=== PATIENT | male | born 1975 | race Caucasian/White ===

== ENCOUNTER 2019-08-12 01:06 | Observation (INO) | payer OTHER, SELFPAY ==
[2019-08-12] VITALS (11 sets, daily range): BP systolic 115–143; BP diastolic 75–98; PULSE 82–95; RESP 12–24; TEMP 36.2–37.6; O2SAT 93–100; BMI 24.9
--- NOTE | ~2019-08-12 | XR_ITS ---
EXAMINATION: XR abdomen/kub 1V EXAM DATE: 08/12/2019 02:04 INDICATION: Right UPJ stone. TECHNIQUE: Frontal projection(s) of the abdomen for interpretation. There is no prior study for liz chung. FINDINGS: Right UPJ 6 mm stone is identified, indicated projecting between the right L2 and L3 trans verse processes. Nonobstructive bowel gas pattern. Mild bony degenerative changes. IMPRESSION: Right UPJ stone identified. Reviewed, dictated and finalized at location A. HERMAL PRODUCTION MANAGER IMPRESSION: Right UPJ stone identified.
--- NOTE | ~2019-08-12 | CT_ITS ---
EXAMINATION: CT abdomen pelvis wo con EXAM DATE: 08/12/2019 01:56 INDICATION: Right flank pain, low back pain. TECHNIQUE: Spiral CT of the abdomen and pelvis was performed without contrast. Axial, coronal and s agittal images were reviewed. The dose-length product (DLP) for this examination was 217.37 mGy-cm. The exposure was tailored according to patient size (auto mA exposure control), and iterative recons truction (ASIR) was used as additional dose reduction technique. There is no prior study for compari son. FINDINGS: The liver, spleen, adrenal glands and pancreas are unremarkable. Gallbladder is unremarkab le. No biliary obstruction. Right kidney is enlarged, mild obstructive nephropathy from a 6 x 4 mm stone in the ureteropelvic junction. There is punctate left nephrolithiasis. The prostate is unremar kable. The bladder is unremarkable. There is no retroperitoneal or pelvic lymphadenopathy. Small umbilical fat-containing hernia. The appendix is normal. The stomach and small bowel are unremarkable. There is expected amount of c olonic stool. No free intraperitoneal gas. The heart is normal in size. There are no pericardial or pleural effusions. There is mild to moderate basilar emphysema, basilar subsegmental atelectasis . There are no osteoblastic or osteolytic lesions identified. IMPRESSION: 1. Right UPJ 6 mm stone, mild obstructive nephropathy. 2. Punctate left nephrolithiasis. Reviewed, dictated and finalized at location A. EDUCATOR
--- NOTE | 2019-08-12 01:24 | ED_ITS ---
I attest that this documentation has been prepared under the direction and in the presence of Jessica Sheffield MD. Amara Isaac Scribe 08/12/19;01:25 HPI - Male Genitourinary General Chief complaint: Urogenital-Male Stated complaint: kidney stones Time Seen by Provider: 08/12/19 01:19 Source: patient and RN notes reviewed Mode of arrival: other Limitations: no limitations [facility] Surgical History Surgical History (Updated 08/12/19 @ 01:26 by Amara Isaac) H/O lithotripsy Course Vital Signs Vital signs: Vital Signs Temperature 36.9 C 08/12/19 01:11 Pulse Rate 82 08/12/19 01:11 Respiratory Rate 24 H 08/12/19 01:11 Blood Pressure 143/97 H 08/12/19 01:11 Pulse Oximetry 100 08/12/19 01:11 Temperature 36.9 C 08/12/19 01:11 Pulse Rate 82 08/12/19 01:11 Respiratory Rate 24 H 08/12/19 01:11 Blood Pressure 143/97 H 08/12/19 01:11 Pulse Oximetry 100 08/12/19 01:11
--- NOTE | 2019-08-12 01:27 | ED.BACK ---
HPI - Back Pain/Injury General Chief Complaint: Back Pain/Injury Stated Complaint: kidney stones Time Seen by Provider: 08/12/19 01:19 Source: patient and RN notes reviewed Mode of arrival: other Limitations: no limitations History of Present Illness HPI Narrative: Pt is a 43 y/o male who presents to the ED with c/o 10/10 right flank pain that radiates to his testicles that began 2 hours ago. Pt has a hx of kidney stones and a lithotripsy removing a 7 mm stone at [facility] ED 6 months ago. Pt states that he went back to [facility] after his surgery and he was cleared to go back to work. Pt states that he was told that he did not have any other stones in his kidney after his surgery. He notes that this episode is worse than his previous episodes of kidney stones. Pt reports dark colored urine, but denies nausea and vomiting. MD elicited complaint: other (flank pain) Pertinent past history: kidney stones Onset (ago): hour(s) (2) Timing: other (still present) Severity: severe Pain scale (0-10): 10 Location: right flank Radiation: other (testicles) Associated symptoms: other (dark colored urine) Related Data Home Medications Medication Instructions Recorded Confirmed bupropion HCl 75 mg PO BID 08/12/19 08/12/19 Allergies Allergy/AdvReac Type Severity Reaction Status Date / Time No Known Allergies Allergy Verified 08/12/19 03:21 Review of Systems Review of Systems: All systems reviewed & are unremarkable except as noted in HPI and below Gastrointestinal: Gastrointestinal: Denies nausea and Denies vomiting Genitourinary: Genitourinary: Reports flank pain (that radiates to his testicles) and Reports other (dark colored urine) [facility] Past Medical History Medical History (Updated 08/12/19 @ 04:09 by Jessica Sheffield MD) ADHD Anxiety Kidney stone Surgical History Surgical History (Updated 08/12/19 @ 01:26 by Amara Isaac) H/O lithotripsy Family History Family History (Updated 08/12/19 @ 04:59 by Karma Frances, RIYA) Father Stomach cancer Social History Social History Smoking status: Current every day smoker Tobacco type: cigarettes Alcohol intake: former Substance use: never Substance use type: does not use Gender identity (if verbalized by the patient): Male Spiritual care concerns: No Agree to blood products: Yes Exam Const: General: alert and acute distress moderate Nutritional Appearance: thin Orientation/consciousness: patient oriented x3 Eyes: Conjunctivae: conjunctivae normal Pupils: Equal, round and reactive pupils present EOM: EOMs intact bilaterally Chest: Chest palpation & inspection: normal inspection of the chest Resp: Effort & Inspection: normal respiratory effort and no retractions Auscultation: clear to auscultation bilaterally and no wheezes Cardio: Rate: regular rate Rhythm: regular rhythm Heart sounds: no murmurs GI: GI Palp: Yes abdominal tenderness (RUQ, RLQ), Yes Soft to palpation, No Guarding due to palpation present (GI) and No Rigid due to palpation Auscultation: normal bowel sounds Back/Spine/Pelvis: Back: CVA tenderness (right) Skin: General skin exam: normal color Rashes: no rashes Neuro: General: patient oriented x3, moves all extremities and CN's II-XI intact bilaterally Psych: Mental Status: mental status grossly normal Affect: normal affect Course Reevaluation(s) Reevaluation #1: PAtient is laying in bed comfortably but patient states his pain is still severe Date: 08/12/19 Time: 03:15 Consultations Consultation #1: I spoke with Dr. Sanchez about case and he agrees to admit. Make patient NPO Date: 08/12/19 Time: 03:39 Vital Signs Vital signs: Vital Signs Temperature 98.4 F 08/12/19 01:11 Pulse Rate 82 08/12/19 01:11 Respiratory Rate 24 H 08/12/19 01:11 Blood Pressure 143/97 H 08/12/19 01:11 Pulse Oximetry 100 08/12/19 01:11 Temperature 98.1 F 08/12/19 04:54 Pulse Rate 83 08/12/19 04:54 Respira
[2019-08-12] MEDS: ONDANSETRON INJ 4 MG/2 ML VIAL IV PUSH (01:44)
[2019-08-12] MEDS: HYDROMORPHONE HCL 1 MG/ML INJ IV PUSH (01:45)
[2019-08-12] MEDS: LACTATED RINGERS 1,000 ML 999 ML IV CONT (01:46)
--- NOTE | 2019-08-12 01:52 | PC.NURSE ---
Pt down to ct. asked pt to void. urinal provided
[2019-08-12 01:53] LABS: Basophils Absolute Auto 0.1 K/mm3 (0.0-0.1); Basophils Percent Auto 0.9 % (0.2-1.2); Eosinophils Absolute Auto 0.3 K/mm3 (0-0.3); Eosinophils Percent Auto 2.1 % (0-4.4); Hematocrit 46.2 % (42.0-52.0); Hemoglobin 15.3 g/dL (14.0-18.0); Immature Granulocyte Absolute 0.04 K/mm3 (0.00-0.031); Immature Granulocyte Percent A 0.3 % (0-0.5); Lymphocytes Absolute Auto 0.77 K/mm3 (0.9-3.2); Lymphocytes Percent Auto 6.6 % (18.3-44.2); Mean Corpuscular HGB Conc 33.1 g/dl (32-36); Mean Corpuscular Hemoglobin 31.1 pg (26-34); Mean Corpuscular Volume 93.9 fl (80-100); Mean Platelet Volume 10.5 fl (7.4-10.4); Monocytes Absolute Auto 1.1 K/mm3 (0.1-0.6); Neutrophils Absolute Auto 9.5 K/mm3 (1.3-6.7); Neutrophils Percent Auto 81.1 % (45.5-73.1); Platelet Count Result 231 k/mm3 (150-375); Red Blood Count 4.92 M/mm3 (4.6-6.20); Red Cell Distribution Width 12.6 % (11.5-14.5); White Blood Count 11.7 K/mm3 (4.5-10.0)
[2019-08-12 02:03] LABS: Alanine Aminotransferase 14 U/L (4-50); Albumin Level 4.2 g/dL (3.5-5.1); Alkaline Phosphatase 92 U/L (38-126); Aspartate Amino Transferase 20 U/L (17-59); Bilirubin,Total 0.4 mg/dL (0.2-1.3); Blood Urea Nitrogen 20 mg/dL (9-20); Calcium 8.8 mg/dL (8.4-10.2); Carbon Dioxide 29 mmol/L (22-30); Chloride 99 mmol/L (98-107); Estimated CRCL calculation 75 ml/min; Estimated Glomerular Filt Rate > 60; Glucose 108 mg/dL (75-110); Lipase 97 U/L (23-300); Potassium 4.3 mmol/L (3.4-5.0); Sodium 136 mmol/L (137-145)
[2019-08-12 02:56] LABS: Add Urine Microscopic? YES; Appearance Urine Cloudy (Clear); Bilirubin Urine Negative (Negative); Blood Urine 3+ (Negative); Color Urine Yellow (Yellow); Glucose Urine UA Negative (Negative); Ketones Urine Negative (Negative); Leukocyte Esterase Ur Negative LEU/UL (Negative); Mucus Urine Rare /lpf; Nitrate Urine Negative (Negative); Protein Urine 2+ mg/dL (Negative); RBC Urine >75 /hpf (0-2); Specific Grav Ur 1.018 (1.001-1.035); Urobilinogen Urine Negative mg/dL (<2.0)
--- NOTE | 2019-08-12 04:47 | ADMGEN ---
This patient, Jt Duarte, was admitted to Medical Room 246-01. Patient/family oriented to hospital policies and general routines including ID bracelet, bed and alarms, visiting hours, pain management, procedures, bathroom and other care routines, personal items, smoking policy, room service/diet, and visiting hours. Valuables list has been completed. Information on how to activate the Rapid Response Team has been discussed. Patient/Family are encouraged to report perceived risks to care and to ask questions if they do not understand what they are told or what they should do.
[2019-08-12] MEDS: LACTATED RINGERS 1,000 ML 125 ML IV CONT ×2 (05:10→12:46)
--- NOTE | 2019-08-12 08:19 | WPDURCON ---
Assessment and Plan Assessment and plan (1) Calculus of proximal right ureter: Code(s): N20.1 - Calculus of ureter Status: Acute Assessment and Plan: Obtain consent: Right Lithotripsy, possible cystoscopy with right stent placement. Keep NPO. Plan to go to OR today. Urology Consult Note HPI Date Seen: 08/12/19 Requesting Physician: Donnie Sanchez MD Primary Care Provider: ART PSYCHOTHERAPIST OR THERAPIST PHYSICIAN Consult Narrative Reason for consult: 6mm Right UPJ Stone Narrative: Jt Duarte is a 43 year old male who presented to the ER with severe right flank pain that radiates to his testicles that began early this morning. Pt has a hx of kidney stones and has had a recent lithotripsy to remove a 7 mm stone at [facility] in January 2019. Patient states that he was told by the Urologist at [facility] that he did not have any other stones in his kidney after his surgery. Pt reports dark colored urine, but denies nausea, dysuria, fever or vomiting. He has had some minor gross hematuria preesent. He denies any blood thinners or NSAIDS for the past 7 days. Review of Systems Cardiovascular: Cardiovascular: Denies chest pain Respiratory: Respiratory: Reports no additional respiratory complaints Gastrointestinal: Gastrointestinal: Denies abdominal pain Genitourinary: Genitourinary: Reports hematuria, Denies dysuria, Reports flank pain, Reports testicular pain and Denies urinary urgency PMFSH Past Medical History Medical History ADHD Anxiety Kidney stone Surgical History Surgical History H/O lithotripsy Family History Family History Father Stomach cancer Social History Social History Smoking status: Current every day smoker Tobacco type: cigarettes Alcohol intake: former Substance use: never Substance use type: does not use Gender identity (if verbalized by the patient): Male Spiritual care concerns: No Agree to blood products: Yes Meds Home Medications and Allergies Home Medications Medication Instructions Recorded Confirmed Type bupropion HCl 75 mg PO BID 08/12/19 08/12/19 History Allergies Allergy/AdvReac Type Severity Reaction Status Date / Time No Known Allergies Allergy Verified 08/12/19 03:21 Vital Signs Vital Signs - 24 hr 08/12/19 01:11 08/12/19 03:26 08/12/19 04:25 Temperature 98.4 F 98.9 F Pulse Rate 82 95 91 Respiratory Rate 24 H 12 13 Blood Pressure 143/97 H 140/94 H 137/88 Pulse Oximetry 100 93 100 08/12/19 04:40 08/12/19 04:54 Temperature 99.0 F 98.1 F Pulse Rate 91 83 Respiratory Rate 15 20 Blood Pressure 133/90 138/98 H Pulse Oximetry 100 97 Exam Resp: Effort & Inspection: normal respiratory effort Cardio: Rate: regular rate GI: GI Palp: No Tenderness to palpation present (GI) : General: No CVA tenderness Results Labs CBC & Chem 7: 08/12/19 01:45 08/12/19 01:45 Labs: Short CBC 08/12/19 Range/Units 01:45 WBC 11.7 H (4.5-10.0) K/mm3 Hgb 15.3 (14.0-18.0) g/dL Hct 46.2 (42.0-52.0) % Plt Count 231 (150-375) k/mm3 BMP 08/12/19 01:45 Sodium 136 L Potassium 4.3 Chloride 99 Carbon Dioxide 29 BUN 20 Creatinine 1.10 Glucose 108 Calcium 8.8 Liver Function 08/12/19 Range/Units 01:45 Total Bilirubin 0.4 (0.2-1.3) mg/dL AST 20 (17-59) U/L ALT 14 (4-50) U/L Alkaline Phosphatase 92 (38-126) U/L Albumin 4.2 (3.5-5.1) g/dL Urine 08/12/19 Range/Units 02:32 Urine Color Yellow (Yellow) Urine Appearance Cloudy H (Clear) Urine pH 7.0 (5.0-9.0) Ur Specific [place] 1.018 (1.001-1.035) Urine Protein 2+ H (Negative) mg/dL Urine Glucose (UA) Negative (Negative) mg/dL
--- NOTE | 2019-08-12 12:03 | WPDANESEPPF ---
Anes - Initial Pre Proc Eval Procedure: Operation Date: 08/12/19 12:30 Proposed Procedures p Right Extracorporeal Shock Wave Lithotripsy, Possible Cystoscopy, Right Ureteroscopy, Right Retrograde Pyelogram, Right Stent Placement - Joe Sorensen MD Date/Time: 08/12/19 12:03 Surgeon: Donnie Sanchez MD Pre Op Diagnosis: right proximal obstructive ureteral stone Patient Data Age: 43 Gender: M Height: 1.75 m Weight: 76.6 kg Last Vital Signs Temp 36.7 C 08/12/19 04:54 Pulse 83 08/12/19 04:54 Resp 20 08/12/19 04:54 BP 138/98 H 08/12/19 04:54 Pulse Ox 97 08/12/19 04:54 Allergies Allergy/AdvReac Type Severity Reaction Status Date / Time No Known Allergies Allergy Verified 08/12/19 13:22 Home Medications Medication Instructions Recorded Confirmed Type bupropion HCl 75 mg PO BID 08/12/19 08/12/19 History Laboratory Tests 08/12/19 08/12/19 08/12/19 01:45 01:45 02:32 WBC 11.7 K/mm3 H K/mm3 (4.5-10.0) RBC 4.92 M/mm3 M/mm3 (4.6-6.20) Hgb 15.3 g/dL g/dL (14.0-18.0) Hct 46.2 % % (42.0-52.0) MCV 93.9 fl fl (80-100) MCH 31.1 pg pg (26-34) MCHC 33.1 g/dl g/dl (32-36) RDW 12.6 % % (11.5-14.5) Plt Count 231 k/mm3 k/mm3 (150-375) MPV 10.5 fl H fl (7.4-10.4) Immature Gran % (Auto) 0.3 % % (0-0.5) Neut % (Auto) 81.1 % H % (45.5-73.1) Lymph % (Auto) 6.6 % L % (18.3-44.2) [place] % (Auto) 9.0 % H % (2.6-8.5) Eos % (Auto) 2.1 % % (0-4.4) Baso % (Auto) 0.9 % % (0.2-1.2) Lymph # (Auto) 0.77 K/mm3 L K/mm3 (0.9-3.2) [place] # (Auto) 1.1 K/mm3 H K/mm3 (0.1-0.6) Eos # (Auto) 0.3 K/mm3 K/mm3 (0-0.3) Baso # (Auto) 0.1 K/mm3 K/mm3 (0.0-0.1) Abs Immat Gran (auto) 0.04 K/mm3 H K/mm3 (0.00-0.031) Absolute Neuts (auto) 9.5 K/mm3 H K/mm3 (1.3-6.7) Absolute Nucleated RBC 0.0 K/mm3 K/mm3 (0.0-0.012) Nucleated RBC % 0.0 % % (0.0-0.2) Sodium 136 mmol/L L mmol/L (137-145) Potassium 4.3 mmol/L mmol/L (3.4-5.0) Chloride 99 mmol/L mmol/L (98-107) Carbon Dioxide 29 mmol/L mmol/L (22-30) BUN 20 mg/dL mg/dL (9-20) Creatinine 1.10 mg/dL mg/dL (0.7-1.3) Estim Creat Clear Calc 75 ml/min ml/min Estimated GFR > 60 (59 - ) Glucose 108 mg/dL mg/dL (75-110) Calcium 8.8 mg/dL mg/dL (8.4-10.2) Total Bilirubin 0.4 mg/dL mg/dL (0.2-1.3) AST 20 U/L U/L (17-59) ALT 14 U/L U/L (4-50) Alkaline Phosphatase 92 U/L U/L (38-126) Total Protein 8.0 g/dL g/dL (6.3-8.2) Albumin 4.2 g/dL g/dL (3.5-5.1) Lipase 97 U/L U/L (23-300) Urine Color Yellow (Yellow) Urine Appearance Cloudy H (Clear) Urine pH 7.0 (5.0-9.0) Ur Specific [place] 1.018 (1.001-1.035) Urine Protein 2+ mg/dL H mg/dL (Negative) Urine Glucose (UA) Negative mg/dL mg/dL (Negative) Urine Ketones Negative mg/dL mg/dL (Negative) Ur Blood (Man) 3+ H (Negative) Urine Nitrate Negative (Negative) Urine Bilirubin Negative (Negative) Urine Urobilinogen Negative mg/dL mg/dL (<2.0) Leukocyte Esterase Rfl Negative ARIANNA/UL ARIANNA/UL (Negative) Urine RBC >75 /hpf H /hpf (0-2) Urine WBC 4-6 /hpf H /hpf Urine Mucus Rare /lpf /lpf Patient hx anesthesia problems: none Family hx anesthesia problems: none PMFSH Past Medical History Medical History (Updated 08/12/19 @ 12:04 by Ezio Mcknight MD) ADHD Anxiety Depression Kidney stone Surgical History Surgical History H/O lith
[2019-08-12] MEDS: LACTATED RINGERS 1,000 ML 30 ML IV CONT ×2 (13:20→14:53)
[2019-08-12] MEDS: ceFAZolin 2 GM/D5W 50 ML 2 GM/50 ML BAG IVPB (14:00)
--- NOTE | 2019-08-12 14:42 | PM.PROC ---
Procedure Note - Detailed Date of procedure: 08/12/19 Pre-op diagnosis: right proximal obstructive ureteral stone Post-op diagnosis: same Procedure performed: Lithotripsy of right proximal ureteral calculus 6 mm Description of procedure: Patient was taken to the operative suite and correctly identified. Once general anesthesia was obtained the stone was localized in both planes. Three thousand shocks were given to the stone. There appeared to be good fragmentation. Patient tolerated procedure well without any complications was taken recovery room in stable condition. We discharged home later today if he tolerates a diet. Anesthesia: GLMA Surgeon: Joe Sorensen MD Drains: No Packing: No Pathology: none sent Complications: No immediate complications Condition: stable Disposition: PACU
--- NOTE | 2019-10-04 13:49 | PM.DS ---
DS: Diagnosis Admitting Diagnosis Admitting Diagnosis: Unspecified abdominal pain DS: Summary Time Spent with Patient Time attestation: Total time spent providing and/or coordinating discharge services: Discharge Plan Discharge Attending physician on discharge: Joe Sorensen Consulting providers: Joe Sorensen ; Dany Jordan ; Yamilet Cervantes Discharging Clinician: Yamilet Cervantes Anticipated Discharge Date/Time: 08/12/19 14:22 Patient Disposition: Home, Self-Care Activity: november shower Diet: as tolerated Discharge Instructions: Call office to schedule follow up with Dr. Sorensen. Patient Instructions: Antibiotic Form, How to Stop Smoking (DC) Stand Alone Forms: General Discharge Information Follow-up/Referrals: Joe Sorensen MD [Physician] - Discharge Medications: New sulfamethoxazole-trimethoprim 800-160 mg tablet 1 tablet PO BID 3 Days Qty: 6 RF: 0 tramadol 50 mg tablet 50 mg PO Q6H PRN (Reason: pain) Qty: 20 RF: 0 Continued bupropion HCl 75 mg tablet 75 mg PO BID RF: 0 Date of admission: 08/12/19 04:09 Primary Care Provider: PHYSICIAN,ELEMENTARY SCHOOL ART TEACHER Admitting Provider: Donnie Sanchez Discharge Date/Time: 08/12/19 18:30 Attending physician on admission: Donnie Sanchez Condition: Stable
== END 2019-08-12 18:30 | disposition home or self-care (01) ==
LOC: ANHED 04:09 → ANH2MED 04:21
PROVIDERS: Urology; Admitting Provider Urology; Emergency Provider General Practice; Visit Provider Urology
PROC: (CPT 50590; principal; 2019-08-12 12:30)
DX: N13.2 Hydronephrosis with renal and ureteral calculous obstruction (principal); Z87.442 Personal history of urinary calculi; F17.210 Nicotine dependence, cigarettes, uncomplicated; F90.9 Attention-deficit hyperactivity disorder, unspecified type; F41.9 Anxiety disorder, unspecified
CPT/HCPCS: 50590; 36415; 74018; 74176; 80053; 81001; 83690; 85025; 96361; 96365; 96367; 96374; 96375; 99285; G0378; G0379; J0131; J0690; J1100; J1170; J2250; J2405; J2704; J3010; J7120

== ENCOUNTER 2023-08-11 14:00 | Emergency (ER) | payer OTHER, MEDICAID, SELFPAY ==
--- NOTE | ~2023-08-11 | CT_ITS ---
EXAMINATION: CT abdomen pelvis wo con DATE: 08/11/2023 15:49 INDICATION: Left flank pain. TECHNIQUE: Computed tomography (CT) of the abdomen and pelvis was performed without intravenous contr ast. Automated exposure control and iterative reconstruction technique were employed. The dose-length product was 198.70 mGy-cm. COMPARISON: CT abdomen and pelvis 08/12/19 FINDINGS: The visualized portions of the lung bases demonstrated mild atelectasis. There is mild emph ysema. No pleural effusion. The heart size is normal. No pericardial effusion. There are cysts in the liver measuring up to 9 mm. The gallbladder, spleen, pancreas, and adrenal glands are normal. There is a 4 mm stone in right kidney. There is a 15 mm cyst in left kidney. There is a 3 mm stone in left kidney. The prostate is mildly enlarged. The bladder is not well distended. There is fat stranding ar ound the bladder. There are no dilated loops of bowel. The appendix is normal. There is calcified ath erosclerosis of the aorta and common iliac arteries. There is mild thoracic and lumbar spondylosis. T here are no pathologically enlarged lymph nodes. There is no free intraperitoneal fluid. IMPRESSION: 1. Bilateral nonobstructing kidney stones. 2. Fat stranding around the bladder, consistent with inflammation versus edema. Reviewed, dictated and finalized at location E. D BELT SANDER
[2023-08-11 14:03] VITALS: BP 131/76; PULSE 92; RESP 16; TEMP 36.6; O2SAT 98
[2023-08-11 15:26] VITALS: BP 124/85; PULSE 92; RESP 19; TEMP 36.6; O2SAT 97
--- NOTE | 2023-08-11 15:32 | PC.NURSE ---
pt unable to provide a urine sample, states I literally just went in the waiting room, I am gonna need some time
--- NOTE | 2023-08-11 15:34 | ED.GENADULT ---
HPI - General Adult General Chief complaint: Urogenital-Male <Evangelista Conway PA-C - Last Filed: 08/11/23 15:36> Stated complaint: hematuria <Evangelista Conway PA-C - Last Filed: 08/11/23 15:36> Time Seen by Provider: 08/11/23 15:33 <Evangelista Conway PA-C - Last Filed: 08/11/23 15:36> Focused HPI: This is a 47-year-old male with PMH of kidney stones who presents to the ED with chief complaint of hematuria urination. Reports some bilateral flank pain as well. Reports he has had multiple surgeries for kidney stones in the past and this feels the same today. Denies abdominal pain. denies fevers, chills, nausea, vomiting. Denies STD concerns GENERAL: Well-appearing, well-nourished, and in no acute distress. HEAD: Normocephalic, atraumatic. CHEST: Clear to auscultation. No respiratory distress. HEART: Regular rate and rhythm. NEURO: Alert and oriented x3. Patient screened in triage and initial orders placed. Additional care and disposition to be based upon diagnostic testing and treatment. <Evangelista Conway PA-C - Last Filed: 08/11/23 15:36> Focused HPI: This is a 47-year-old male with PMH of kidney stones who presents to the ED with chief complaint of hematuria urination. Reports some bilateral flank pain as well. Reports he has had multiple surgeries for kidney stones in the past and this feels the same today. Denies abdominal pain. denies fevers, chills, nausea, vomiting. Denies STD concerns. GENERAL: Well-appearing, well-nourished, and in no acute distress. HEAD: Normocephalic, atraumatic. CHEST: Clear to auscultation. No respiratory distress. HEART: Regular rate and rhythm. NEURO: Alert and oriented x3. Patient screened in triage and initial orders placed. Additional care and disposition to be based upon diagnostic testing and treatment. <Gregg Albarran MD - Last Filed: 08/11/23 17:14> Related Data Allergies/adverse reactions: Allergies Allergy/AdvReac Type Severity Reaction Status Date / Time No Known Allergies Allergy Verified 08/11/23 15:25 <Evangelista Conway PA-C - Last Filed: 08/11/23 15:36> Review of Systems Review of Systems: All systems are reviewed and are negative unless stated otherwise in the HPI. <Gregg Albarran MD - Last Filed: 08/11/23 17:14> PMFSH Past Medical History Medical History: Medical History ADHD Anxiety Depression Kidney stone <Evangelista Conway PA-C - Last Filed: 08/11/23 15:36> Surgical History Surgical History: Surgical History H/O lithotripsy <Evangelista Conway PA-C - Last Filed: 08/11/23 15:36> Family History Family History: Family History Father Stomach cancer <Evangelista Conway PA-C - Last Filed: 08/11/23 15:36> Social History Social History: Social History Smoking status: Current every day smoker Tobacco type: cigarettes Alcohol intake: former Substance use: never Substance use type: does not use Gender identity (if verbalized by the patient): Male Spiritual care concerns: No Agree to blood products: Yes <Evangelista Conway PA-C - Last Filed: 08/11/23 15:36> Exam Narrative: General: Alert, awake, afebrile, in no acute distress. HEENT: PERRL, no rhinorrhea, no post nasal drip, oropharynx clear. Neck: Trachea midline, no JVD, no lymphadenopathy. Cardiovascular: Regular rate and rhythm, no murmurs, rubs or gallops, no peripheral edema. Respiratory: Clear to auscultation bilaterally, no tachypnea, no wheezing, no rhonchi, no rubs, no respiratory distress. Abdomen: Soft, nontender, nondistended, no rebound, no guarding, no peritoneal signs. Musculoskeletal: No joint swelling or deformity, normal muscle tone. Skin: No rashes or petechia, no signs of infection. Psychiatric:
[2023-08-11 15:44] LABS: Basophils Absolute Auto 0.1 K/mm3 (0.0-0.1); Basophils Percent Auto 0.8 % (0.2-1.2); Eosinophils Absolute Auto 0.4 K/mm3 (0-0.3); Hematocrit 44.7 % (42.0-52.0); Hemoglobin 14.4 g/dL (14.0-18.0); Immature Granulocyte Absolute 0.04 K/mm3 (0.00-0.031); Immature Granulocyte Percent A 0.3 % (0-0.5); Lymphocytes Absolute Auto 2.02 K/mm3 (0.9-3.2); Lymphocytes Percent Auto 16.1 % (18.3-44.2); Mean Corpuscular HGB Conc 32.2 g/dl (32-36); Mean Corpuscular Hemoglobin 30.6 pg (26-34); Mean Corpuscular Volume 94.9 fl (80-100); Mean Platelet Volume 10.6 fl (7.4-10.4); Neutrophils Percent Auto 71.8 % (45.5-73.1); Platelet Count Result 286 k/mm3 (150-375); Red Blood Count 4.71 M/mm3 (4.6-6.20); Red Cell Distribution Width 12.9 % (11.5-14.5); White Blood Count 12.5 K/mm3 (4.5-10.0)
[2023-08-11 15:54] LABS: Alanine Aminotransferase 23 U/L (6-50); Albumin Level 3.7 g/dL (3.5-5.1); Alkaline Phosphatase 84 U/L (38-126); Anion Gap 5 mmol/L (8-16); Aspartate Amino Transferase 24 U/L (17-59); Bilirubin,Total 0.5 mg/dL (0.2-1.3); Blood Urea Nitrogen 14 mg/dL (9-20); Calcium 8.8 mg/dL (8.4-10.2); Carbon Dioxide 29 mmol/L (22-30); Chloride 106 mmol/L (98-107); Estimated CRCL calculation 97 ml/min; Estimated Glomerular Filt Rate > 60; Glucose 121 mg/dL (65-110); Lipase 62 U/L (23-300); Potassium 4.4 mmol/L (3.4-5.0); Sodium 140 mmol/L (137-145)
[2023-08-11 16:43] VITALS: BP 141/86; PULSE 84; RESP 16; TEMP 36.8; O2SAT 99
[2023-08-11 16:45] VITALS: BP 140/97; PULSE 91; RESP 16; TEMP 36.7; O2SAT 98
[2023-08-11 16:51] LABS: Appearance Urine Turbid (Clear); Bacteria Urine 2+ /hpf; Bilirubin Urine Negative (Negative); Blood Urine 3+ (Negative); Color Urine Yellow (Yellow); Glucose Urine UA Negative (Negative); Ketones Urine Negative (Negative); Leukocyte Esterase Ur 2+ LEU/UL (Negative); Nitrate Urine Positive (Negative); Non Pathogenic Casts 0-2; Protein Urine 2+ mg/dL (Negative); RBC Urine >100 /hpf (0-2); Specific Grav Ur 1.017 (1.001-1.035); Squamous Epithelial Cell Urine None seen /hpf (Few); WBC Urine >100 /hpf; pH Urine 6.5 (5.0-9.0)
[2023-08-11 16:56] LABS: Add Urine Microscopic? YES
[2023-08-11 17:14] VITALS: BP 130/98; PULSE 90; RESP 16; TEMP 36.8; O2SAT 100
== END 2023-08-11 17:50 | disposition home or self-care (01) ==
PROVIDERS: Physician Assistant; Emergency Provider Emergency Medicine
DX: N39.0 Urinary tract infection, site not specified (principal); F17.210 Nicotine dependence, cigarettes, uncomplicated
CPT/HCPCS: 36415; 74176; 80053; 81001; 83690; 85025; 87077; 87086; 87186; 96365; 99284; J0696